=== PATIENT | male | born 1960 | race Caucasian/White ===

== ENCOUNTER → 2018-09-03 11:13 | Outpatient (CLI) | payer MEDICAID ==
[~2018-09-03 11:13] MED LIST: ALBUTEROL SULF8.5 GM INH; EDARBI40 MG PO; FLUTICASONE PRO16 GM NASAL; PLAVIX75 MG PO; SINGULAIR10 MG PO
[2018-09-16 11:13] VITALS: BMI 37.9
== END | disposition home or self-care (01) ==
LOC: D.NM 11:13
DX: I20.9 Angina pectoris, unspecified (principal)

== ENCOUNTER → 2018-09-16 10:38 | Outpatient (CLI) | payer MEDICAID ==
[~2018-09-16] VITALS: Ht 175.3 cm; Wt 116.4 kg
--- NOTE | ~2018-09-16 | HEMODYNAMI ---
PATIENT:TAMEKA RUCKER MEDICAL RECORD: [id number] : 62 LOCATION:[facility] ADMISSION DATE: 09/16/18 Generatedon:09/16/201815:25 Patient name: TAMEKA RUCKER Patient #: [id number] SSN: : 1960 Date of study: 09/16/2018 Page: Of Hemodynamic Procedure Report Patient Data Patient Demographics Procedure consent was obtained First Name: TAMEKA Gender: Male Last Name: ALKA : 1960 Patient #: [id number] Age: 58 year(s) Race: Unknown Additional ID: [id number] Contact details Address: [address] [place] [address] State: [place] City: [place] Zip code: [address] Past Medical History Allergies Allergen Reaction Date Comments Reported Other allergy 09/16/2018 PCN, Iodine Admission Admission Data Admission Date: 09/16/2018 Admission Time: 10:38 Height (in.): 70 BSA: 2.32 (m2) Height (cm.): 177.8 BMI: 36.73 (kg/m2) Weight (lbs.): 256 Weight (kg.): 116.12 Procedure Procedure Types Cath Procedure Diagnostic Procedure LH LH w/Coronaries PCI Procedure Coronary Stent Coronary Stent Initial Procedure Description Procedure Date Procedure Date: 09/16/2018 Procedure Start Time: 15:02 Procedure End Time: 15:22 Procedure Staff Name Function Chance Delgado MD Performing Physician Rocío Arambula RT Monitor Pierre Ma RN Nurse Eliana Grove RT Scrub Procedure Data Cath Procedure Fluoroscopy Diagnostic fluoroscopy Total fluoroscopy Time: 3.1 time: 3.1 min min Diagnostic fluoroscopy Total fluoroscopy dose: 942 dose: 942 mGy mGy Contrast Material Contrast Material Type Amount (ml) Isovue 300 120 Entry Location Entry Primary Successful Side Size Upsize Upsize Entry Closure Succes sful Closure Location (Fr) 1 (Fr) 2 (Fr) Remarks Device Remarks Femoral Right 5 Fr 6 Fr Exoseal artery Short Estimated blood loss: 10 ml Diagnostic catheters Device Type Used For End Catheter Placement MULTIPACK JL 4.0 5Fr Procedure catheter MULTIPACK 3DRC 5Fr Procedure catheter MULTIPACK Pigtail 5 Fr Procedure catheter Procedure Complications No complications Procedure Medications Medication Administration Route Dosage 0.9% NaCl I.V. 100 ml/hr Oxygen etCO2 Nasal cannula 2 l/min Heparin Flush Bag added to field 2 bags (1000units/500ml NS) Lidocaine 2% added to field 20 Versed I.V. 2 mg Fentanyl 100 mcg Heparin Bolus I.V. 5000 units Integrilin (Bolus I.V. 10.7 ml 2mg/ml) Integrilin (Bolus wasted 9.3 ml 2mg/ml) Nitroglycerin IC/IA I.C. 200 mcg Plavix P.O. 600 mg Hemodynamics Rest BSA: 2.32 (m2) O2 Consumption: Estimated: 274.59 (ml/min) O2 Consumption indexed : Estimated:118.36 (ml/min/m) Heart Rate: 71 (bpm) Pressure Samples Time Site Value (mmHg) Purpose Heart Use Rate(bpm) 15:09 LV 95/9,11 Snapshot 87 15:10 AO 171/171(82) Pullback 86 15:10 LV 86/9,11 Pullback 86 Gradients Valve Time Site 1 Site 2 Mean SEP/DFP Peak To Heart Use (mmHg) (sec/min) Peak Rate (mmHg) (bpm) Aortic 15:10 LV AO 0 16 0 86 86/9,11 171/171(82) Calculations Valve P-P Mean Valve Index Valve Source Name Gradient Area Flow (cm2) Aortic 0 0 0 0 Snapshots Pre Cath Intra NCS Post Cath Vital Signs Time Heart Resp SPO2 etCO2 NIBP Rhythm Pain Sedation Rate (ipm) (%) (mmHg) (mmHg) Status Level (bpm) 15:01:01 81 16 96 29.5 106/70(86) NSR 0 (11) 10(A) , No pain 15:05:09 82 13 95 11.3 112/61(84) NSR 0 (11) 10(A) , No pain 15:09:15 85 15 96 22.7 124/72(90) NSR 0 (11) 10(A) , No pain 15:13:27 85 13 96 8.3 112/68(81) NSR 0 (11) 9(A) , No pain 15:17:36 88 16 94 1.5 111/65(86) NSR 0 (11) 9(A) , No pain 15:21:50 92 18 96 18.9 102/53(61) NSR 0 (11) 10(A) , No pain Medications Time Medication Route Dose Verified Delivered Reason Notes Effectiveness by by 15:00:15 0.9% NaCl I.V. 100 Pierre Pierre Per physician ml/hr Francesca Ma RN RN 15:00:24 Oxygen etCO2 2 Pierre Pierre Per physician Nasal l/min Francesca Ma cannula RN RN 15:00:33 Heparin Flush added 2 Pierre Pierre used for Bag to bags Francesca Ma procedure (1000units/500ml field RN RN NS) 15:00:43 Lidocaine 2% added 20ml Pierre Pierre for local to vial Francesca Ma anesthetic field RN RN 15:02:27 Versed I.V. 2 mg Pierre Pierre for sedation Francesca Ma RN RN 15:02:33 Fentanyl 100 Pierre Pierre for sedation mcg Francesca Ma RN RN 15:12:58 Heparin Bolus I.V. 5000 Pierre Pierre for units Francesca Ma anticoagulation RN RN 15:13:21 Integrilin I.V. 10.7 Pierre Pierre for (Bolus 2mg/ml) ml Francesca aM antiplatelet RN RN therapy 15:13:44 Integrilin wasted 9.3 Pierre Pierre to sharp's (Bolus 2mg/ml) ml Francesca Ma RN RN 15:19:09 Nitroglycerin I.C. 200 Pierre Fltecher for IC/IA mcg Francesca Delgado vasodilation ANDRADE HEBERT 15:19:31 Plavix P.O. 600 Pierre Fletcher for mg Francesca Delgado antiplatelet ANDRADE HEBERT therapy Procedure Log Time Note 14:45:21 Patient Height : 70 inches 14:45:24 Patient Weight : 256 lbs 14:45:52 Diagnostic Cath status Elective 14:45:54 Pierre Ma RN sent for patient. Start room use. 14:45:56 Time tracking: Regular hours (M-F 7:00 - 5:00) 14:46:02 Plan of Care:Hemodynamics will remain stable., Cardiac rhythm will remain stable., Comfort level will be maintained., Respiratory function will remain adequate., Patient/ family verbilizes understanding of procedure., Procedure tolerated without complication., Recovers from procedure without complications.. 14:46:14 Patient received from Pre/Post Procedure Room to CCL 2 Alert and oriented. Tansferred to table in Supine position. 14:49:09 Warm blankets applied, and ann hugger turned on for patient comfort. 14:49:09 Correct patient and procedure confirmed by team. 14:49:11 Signed procedure consent form obtained from patient. 14:49:12 ECG and BP/O2 sat monitors applied to patient. 14:49:38 H&P Date Dictated: 08/27/2018 Within 30 days and on chart., H&P Addendum completed by physician on day of procedure. (MUST COMPLETE FOR ALL OUTPATIENTS). 14:49:39 Pre-procedure instructions explained to patient. 14:49:41 Family in waiting room. 14:49:44 Patient NPO since Midnight. 14:50:09 Patient allergic to Other allergyPCN, Iodine 14:50:11 Is the patient allergic to Iodine/contrast media? Yes. 14:50:13 Was the patient premedicated? Yes 14:50:15 Is patient on blood thinner?No 14:59:28 Patient diabetic? No. 14:59:32 Snore? Yes 14:59:33 Sleep apnea? Yes 14:59:52 Airway obstruction? Yes Emphyzema 14:59:59 Dentures? Yes in tight 15:00:02 Vital chart was started 15:00:04 Baseline sample Acquired. 15:00:08 Rhythm: sinus rhythm 15:00:09 Full Disclosure recording started 15:00:15 0.9% NaCl 100 ml/hr I.V. was administered by Pierre Ma RN; Per physician; 15:00:20 IV patent on arrival in left forearm with 0.9% NaCl at [facility]. 15:00:24 Oxygen 2 l/min etCO2 Nasal cannula was administered by Pierre Ma RN; Per physician; 15:00:33 Heparin Flush Bag (1000units/500ml NS) 2 bags added to field was administered by Pierre Ma RN; used for procedure; 15:00:43 Lidocaine 2% 20ml vial added to field was administered by Pierre Ma RN; for local anesthetic; 15:01:55 Right groin area was prepped with chlora-prep and draped in sterile fashion 15:01:56 Alarms reviewed by R. N. 15:01:56 Sharps counted by scrub and verified by R.N. 15:01:57 Physician arrived 15:01:58 --------ALL STOP TIME OUT------ 15:01:58 Final Timeout: patient, procedure, and site verified with staff and physician. All members of the team are in agreement. 15:02:03 Right groin site verified by team. 15:02:06 Physical assessment completed. ASA score P 2 - A patient with mild systemic disease as per Chance Delgado MD. 15:02:10 Sedation plan: IV Moderate Sedation Medication:Versed, Fentanyl 15:02:14 Use device set Femoral Dx 15:02:15 ACIST Syringe (77759) opened to sterile field. 15:02:15 Bag Decanter (2002S) opened to sterile field. 15:02:16 Medline Cath Pack ([id number]) opened to sterile field. 15:02:16 DIAGNOSTIC WIRE .035 260cm J wire (569911) opened to sterile field. 15:02:18 ACIST Hand Control (94046) opened to sterile field. 15:02:18 ACIST Manifold (69881) opened to sterile field. 15:02:18 DIAGNOSTIC Multipack 5Fr catheter set (EX2079) opened to sterile field. 15:02:19 Tegaderm 4 x 4 (1626W) opened to sterile field. 15:02:20 PERCUTANEOUS ENTRY 19GA needle opened to sterile field. 15:02:21 SHEATH Prelude 5Fr 0.035 (FLP-5I-76-035) opened to sterile field. 15:02:25 Procedure started. 15:02:27 Versed 2 mg I.V. was administered by Pierre Ma RN; for sedation; 15:02:33 Fentanyl 100 mcg was administered by Pierre Ma RN; for sedation; 15:05:27 A 5 Fr sheath was inserted into the Right Femoral artery 15:05:29 A MULTIPACK JL 4.0 5Fr catheter was advanced over the wire and used for Procedure. 15:05:32 J wire advanced. 15:06:25 LCA angiography performed. 15:07:20 Catheter removed. 15:07:57 A MULTIPACK 3DRC 5Fr catheter was advanced over the wire and used for Procedure. 15:08:06 RCA angiography performed. 15:08:35 Catheter removed. 15:08:50 A MULTIPACK Pigtail 5 Fr catheter was advanced over the wire and used for Procedure. 15:08:53 LV angiography performed. 15:08:57 Zero performed for pressure channel P1 15:10:36 WHISPER 300cm guide wire ([id number]) opened to sterile field. 15:10:37 INFLATOR Merit BasixCompak (ZL0744) opened to sterile field. 15:10:38 SHEATH Prelude 6Fr 0.035 (MWD-9W-66-035) opened to sterile field. 15:11:15 Proceeding to intervention. 15:11:54 GUIDE 6FR HS I catheter (LA6HSI) opened to sterile field. 15:12:18 Sheath upsized to a 6 Fr Short. 15:12:29 6 Fr HS1 guide catheter was inserted over the wire 15:12:58 Heparin Bolus 5000 units I.V. was administered by Pierre Ma RN; for anticoagulation; 15:13:21 Integrilin (Bolus 2mg/ml) 10.7 ml I.V. was administered by Pierre Ma RN; for antiplatelet therapy; 15:13:44 Integrilin (Bolus 2mg/ml) 9.3 ml wasted was administered by Pierre Ma RN; to sharp's; 15:15:01 Wire advanced across lesion. 15:17:20 Place stent Inflation Number: 1 A ULTRA Rx 4.5 x 18 stent ([id number]) was prepped and advanced across the Mid RCA. The stent was deployed at 12 MARY for 0:25 (min:sec). 15:18:40 Stent catheter was removed intact over wire. 15:19:09 Nitroglycerin IC/IA 200 mcg I.C. was administered by Chance Delgado MD; for vasodilation; 15:19:31 Plavix 600 mg P.O. was administered by Chance Delgado MD; for antiplatelet therapy; 15:19:40 EXOSEAL 6Fr (EX600) opened to sterile field. 15:20:08 Wire removed. 15:20:09 Guide catheter removed. 15:20:19 Sheath removed intact; hemostasis achieved with Exoseal to the Right Femoral artery. 15:20:23 Procedure ended.(Physican Out) 15:20:32 Fluoroscopy time 03.10 minutes. 15:20:39 Fluoroscopy dose: 942 mGy 15:20:39 Flurop Dose total: 942 15:20:45 Contrast amount:Isovue 300 120ml. 15:20:47 Sharps counted by scrub and verified by R.N. 15:20:52 Insertion/operative site no bleeding no hematoma. 15:21:19 Post Procedure Pulses reassessed and unchanged 15:21:23 Post-procedure physical assessment completed. ASA score P 2 - A patient with mild systemic disease as per Chance Delgado MD. 15:21:26 Post procedure rhythm: unchanged. 15:21:29 Estimated blood loss: 10 ml 15:21:30 Post procedure instruction explained to patient.Patient verbalizes understanding. 15:21:44 Procedure type changed to Cath procedure, Diagnostic procedure, LHC, LHC w/Coronaries, PCI procedure, Coronary Stent, Coronary Stent Initial 15:21:45 Procedure and supply charges have been captured, reviewed, submitted and are correct. 15:22:11 Procedure Complication : No complications 15:22:14 See physician's report for complete and final results. 15:22:16 Report given to Pre/Post Procedure Room. 15:22:19 Patient transfered to Pre/Post Procedure Room with Stretcher. 15:22:21 Procedure ended. 15:22:21 Full Disclosure recording stopped 15:22:25 End room use (Document Last) 15:25:49 Vital chart was stopped Intervention Summary Intervention Notes Time ActionType Lesion and Equipment Action# Pressure Duration Attributes Used 15:17:20 Place stent Mid RCA ULTRA Rx 1 12 00:25 4.5 x 18 stent ([id number]) Device Usage Item Name Manufacture Quantity Catalog Number Hospital Part Current Minimal Lot# / Charge Number Stock Stock Serial# Code ACIST Syringe Acist 1 93566 428309 195924 670714 20 (42928) Medical Systems Inc Bag Decanter Microtek 1 2001S 825647 68655 970732 5 () Medical Inc. Medline Cath Medline 1 [id number] 825984 50428 578242 5 Pack ([id number]) DIAGNOSTIC WIRE St [place] 1 906481 337994 260783 639889 30 .035 260cm J wire (747222) ACIST Hand Acist 1 37260 394783 096098 873055 5 Control (49021) Medical Systems Inc ACIST Manifold Acist 1 76135 431474 031631 754392 5 (19744) Medical Systems Inc DIAGNOSTIC Cardinal 1 HU4852 647076 80432 896854 30 Multipack 5Fr Health catheter set (HW7011) Tegaderm 4 x 4 3M 1 1626W 785384 639083 382674 5 (1626W) PERCUTANEOUS Cook Medical 1 D17141 025614 383274 5 ENTRY 19GA needle SHEATH Prelude Merit 1 RLA-7M-14-035 106691 891686 066282 5 5Fr 0.035 Medical (LLV-1O-16-035) MULTIPACK JL Cardinal 1 162867 5 4.0 5Fr Health catheter MULTIPACK 3DRC Cardinal 1 987335 5 5Fr catheter Health MULTIPACK Cardinal 1 980215 5 Pigtail 5 Fr Health catheter WHISPER 300cm Bernal 1 [id number] 680869 657721 866202 5 guide wire Vascular ([id number]) INFLATOR Merit Merit 1 [id number] 519326 273477 245295 15 BasixComark Medical (WO8343) SHEATH Prelude Merit 1 FKT-0I-19-35 906611 1294095 025750 5 6Fr 0.035 Medical (VCV-9X-28-035) GUIDE 6FR HS I Medtronic 1 LA6HSI 058755 76191 478919 1 catheter (LA6HSI) ULTRA Rx 4.5 x Bernal 1 [id number] 881085 104157 984783 5 [id number] 18 stent Vascular ([id number]) EXOSEAL 6Fr Cardinal 1 EX600 823696 825157 147406 10 (EX600) Health Signature Audit [place] Stage Time Signature Unsigned Intra-Procedure 09/16/2018 Rocío Arambula 3:25:41 PM RT(R) Signatures Monitor : Rocío Arambula Signature : RT Date : Time : [facility] [address] [place] [address]
--- NOTE | ~2018-09-16 | OP ---
PATIENT NAME: TAMEKA RUCKER MEDICAL RECORD: [id number] :62 LOCATION:D.CAT ADMISSION DATE: SURGEON: GLYNN MALIK MD DATE OF OPERATION: 09/16/2018 PROCEDURE: Left heart catheterization, selective coronary angiography, right femoral artery approach. CATHETERS: A 5-Vietnamese sheath, 5/4 left and right Claritza, 5/4 pig. The procedure was well tolerated. The patient was returned to shen. Sheath was removed. ExoSeal device was placed. FINDINGS: Left ventriculography in 30-degree GALVAN view: Normal wall motion and normal systolic function. CORONARY ANATOMY: LEFT MAIN: Left main is free of disease. LAD: Free of disease in the diagonal system. CIRCUMFLEX: Free of disease in the marginal system. RIGHT CORONARY ARTERY: Large artery. It gives rise to PDA and has 80% stenosis in its proximal one-third. IMPRESSION: Single-vessel disease involving the right. PLAN: Intervention momentarily. DESCRIPTION OF PROCEDURE: A 5-Vietnamese sheath was exchanged for a 6-Vietnamese sheath. Hockey-stick guide catheter provided excellent guide catheter support followed by 300-cm Whisper wire was placed across the tightly occluded right coronary down this portion of the vessel. Stent deployed was 4.5 Ultra up to 12 atmospheres for 45 seconds. Final angiography showed excellent resolution of an 80% stenosis with no significant residual. LUAN flow was 3 throughout the procedure. Integrilin was used during the case. Sheath was closed with ExoSeal device. Plavix was loaded in the lab. TRANSINT:[id number] Voice Confirmation ID: [id number] DOCUMENT ID: [id number] GLYNN MALIK MD at 0802 CC: [id number] DICTATION DATE: 09/16/18 1526 MEMBER SERVICES REPRESENTATIVE: 09/16/18 1700 DEP CLI 09/16/18 [facility] [address] [place] [address]
[2018-09-16 11:13] VITALS: BP 119/64; Ht 175.3 cm; Wt 116.4 kg
[2018-09-16 11:27] LABS: BASOPHILS 0.1 % (0-2); EOSINOPHILS 0.4 % (0-7); HEMATOCRIT 45.4 % (42.0-54.0); HEMOGLOBIN 15.3 g/dL (13.5-17.5); IMMATURE GRANULOCYTES 0.7 % (0-5); LYMPHOCYTES 8.1 % (15-50); MCH 30.5 pg (26.0-34.0); MCHC 33.7 g/dL (31.0-37.0); MCV 90.4 fL (80.0-100.0); MEAN PLATELET VOLUME 10.7 fL (7.4-10.4); MONOCYTES 2.2 % (2-11); NEUTROPHILS 88.5 % (40-80); PLATELET COUNT 263 10x3/uL (130-400); RBC 5.02 10x6/uL (4.20-6.10); RDW 13.2 % (11.5-14.5); WBC 9.9 10x3/uL (4.8-10.8)
[2018-09-16 11:37] LABS: ANION GAP 12.2 mmol/L (8-16); CALCIUM 9.5 mg/dL (8.5-10.1); CARBON DIOXIDE 29.1 mmol/L (21.0-32.0); CREATININE - SERUM 1.4 mg/dL (0.6-1.3); POTASSIUM - SERUM 4.3 mmol/L (3.5-5.1)
== END | disposition home or self-care (01) ==
LOC: D.CATH 10:38
PROVIDERS: Internal Medicine Interventional Cardiology
DX: I25.10 Atherosclerotic heart disease of native coronary artery without angina pectoris (principal)

== ENCOUNTER → 2019-05-18 09:07 | Outpatient (CLI) | payer MEDICARE ==
[2018-09-16 11:13] VITALS: BMI 37.9
--- NOTE | 2019-05-19 11:20 | ST ---
PATIENT:TAMEKA RUCKER MEDICAL RECORD: [id number] SEX: M LOCATION:[facility] ORDER #: ADMISSION DATE: 05/18/19 AGE OF PATIENT: 58 REFERRING PHYSICIAN: INTERPRETING PHYSICIAN: ELIZABETH GILLIS MD DATE OF SERVICE: 05/18/2019 PROCEDURE: Nuclear stress test. INDICATION: Angina and coronary artery disease, shortness of breath, hypertension. He was exercised on standard Lexiscan protocol with 32 mCi of sestamibi injected at peak stress, 11 mCi used previously for rest images. FINDINGS: Gated SPECT reveals preserved ejection fraction at 62% with good wall motion and thickening and brightening throughout all segments. SPECT imaging Cardiolite was used as myocardial fusion agent. There is homogeneous uptake throughout all segments at rest and stress with no evidence of inducible ischemia or previous infarction. OVERALL IMPRESSION: 1. This is a normal nuclear stress test with no evidence of inducible ischemia or previous infarction. 2. Gated SPECT reveals a preserved ejection fraction at 62%. In this patient with ongoing symptomatology, the current scan does not suggest the presence of hemodynamically significant coronary artery disease. Evaluate noncardiac etiology of chest pain. TRANSINT:[id number] Voice Confirmation ID: [id number] DOCUMENT ID: [id number] ELIZABETH GILLIS MD at 1120 CC: SOFYA DICKENS MD [id number] DICTATION DATE: 05/18/19 1634 BUSINESS AND SERVICES INSTRUCTOR: 05/19/19 0134 DEP CLI 05/18/19 [facility] [address] [place] [address]
--- NOTE | 2019-05-21 09:47 | EC ---
PATIENT:TAMEKA RUCKER DATE OF SERVICE: 05/18/19 SEX: M MEDICAL RECORD: [id number] DATE OF : 62 [facility] AGE OF PATIENT: 58 ADMISSION DATE: 05/18/19 REFERRING PHYSICIAN: INTERPRETING PHYSICIAN: GLYNN MALIK MD ECHOCARDIOGRAM REPORT ECHO CHARGES 4 ECHO COMPLETE Date: 05/18/19 CLINICAL DIAGNOSIS: CAD/ASSESS LVEF/ANGINA/PALPS ECHOCARDIOGRAPHIC MEASUREMENTS (adult normal given) AC root (d.<3.7cm) 3.8 cm LV Septum d (<1.2 cm> 1.4 cm Valve Excursion 2.1 cm LV Septum (systole) 1.6 cm Left Atria (s.<4.0cm> 4.3 cm LVPW d(<1.2cm) 1.6 cm RV (d.<2.3cm) 4.3 cm LVPW (sytole) 1.7 cm LV diastole(<5.6CM) 5.3 cm MV E-F(>70mm/sec) cm LV systole 3.9 cm LVOT Diameter 1.9 cm MV exc.(>10mm) 1.5 cm Est.ejection fraction (50-75%) % DOPPLER: LVIT cm/sec A 80.0 cm/sec E 71.0 cm/sec LA cm/sec RVSP 26 mmHg LVOT 121 cm/sec AOP1/2T m/s Asc. Ao 1425 cm/sec RVOT 101 cm/sec RA cm/sec PA 148 cm/sec AV Gradient Peak 8.05 mmHg AV Mean 3.99 mmHg AV Area 3.1 cm MV Gradient Peak 3.51 mmHg MV Mean 1.52 mmHg MV Area cm COMMENTS: English Language Learner Tutor: 2 BRIDGET DUENAS Crane Crew Supervisor: 3 Dr. Mtz TAPE# PACS Pericardial Effusion N DATE OF SERVICE: Adequate 2D, color flow, spectral Doppler, and M-Mode. Mild LVH. LV internal dimension is normal. Wall motion is normal. EF is greater than or equal to 55%. Aortic valve is tricuspid. No evidence of stenosis by Doppler interrogation. Left atrium is mildly dilated at 4.3 cm. Mitral valve shows no prolapse. Trace MR. Right-sided chambers grossly normal. Trace TR. TRANSINT:[id number] Voice Confirmation ID: [id number] DOCUMENT ID: [id number] ECHOCARDIOGRAM REPORT [id number] TAMEKA RUCKER,GLYNN Pierre MD at 0947 CC: [id number] DICTATION DATE: 05/19/19 1354 GEOGRAPHY DEPARTMENT CHAIR: 05/19/19 1425 DEP CLI 05/18/19 [id number] [place] [address]
== END | disposition home or self-care (01) ==
LOC: D.HCCARDIO 09:07
PROVIDERS: ATTEND Internal Medicine Interventional Cardiology
DX: I25.119 Atherosclerotic heart disease of native coronary artery with unspecified angina pectoris (principal)

== ENCOUNTER → 2019-07-09 10:42 | Outpatient (CLI) | payer MEDICARE ==
[2018-09-16 11:13] VITALS: BMI 37.9
== END | disposition home or self-care (01) ==
LOC: D.RT 10:42
PROVIDERS: ATTEND Family Medicine
DX: J44.9 Chronic obstructive pulmonary disease, unspecified (principal)

== ENCOUNTER → 2019-08-16 10:51 | Outpatient (CLI) | payer MEDICARE ==
[2018-09-16 11:13] VITALS: BMI 37.9
== END | disposition home or self-care (01) ==
LOC: D.RAD 10:51
PROVIDERS: ATTEND Internal Medicine Pulmonary Disease
DX: S22.31XA Fracture of one rib, right side, initial encounter for closed fracture (principal)

== ENCOUNTER → 2020-03-02 10:48 | Outpatient (CLI) | payer MEDICARE ==
[2018-09-16 11:13] VITALS: BMI 37.9
--- NOTE | 2020-03-06 14:03 | EC ---
PATIENT:TAMEKA RUCKER DATE OF SERVICE: 03/02/20 SEX: M MEDICAL RECORD: [id number] DATE OF : 62 [facility] AGE OF PATIENT: 59 ADMISSION DATE: 03/02/20 REFERRING PHYSICIAN: INTERPRETING PHYSICIAN: GLYNN MALIK MD ECHOCARDIOGRAM REPORT ECHO CHARGES 4 ECHO COMPLETE Date: 03/02/20 CLINICAL DIAGNOSIS: H/O HTN/CAD ECHOCARDIOGRAPHIC MEASUREMENTS (adult normal given) AC root (d.<3.7cm) 3.4 cm LV Septum d (<1.2 cm> 1.1 cm Valve Excursion 1.6 cm LV Septum (systole) 1.4 cm Left Atria (s.<4.0cm> 4.6 cm LVPW d(<1.2cm) 1.3 cm RV (d.<2.3cm) 3.5 cm LVPW (sytole) 1.6 cm LV diastole(<5.6CM) 6.1 cm MV E-F(>70mm/sec) cm LV systole 4.0 cm LVOT Diameter 2.0 cm MV exc.(>10mm) cm Est.ejection fraction (50-75%) % DOPPLER: LVIT cm/sec A 61.0 cm/sec E 97.0 cm/sec LA cm/sec RVSP 33.0 mmHg LVOT 142 cm/sec AOP1/2T m/s Asc. Ao 149 cm/sec RVOT 58.0 cm/sec RA cm/sec PA 163 cm/sec AV Gradient Peak 8.9 mmHg AV Mean 3.9 mmHg AV Area 2.9 cm MV Gradient Peak 4.2 mmHg MV Mean 1.8 mmHg MV Area cm COMMENTS: OP - HC Leather Cartridge Belt Maker: 1 NANCY AFGANOE Hospital Administrative Assistant: 3 Dr. Mtz TAPE# PACS Pericardial Effusion N DATE OF SERVICE: Adequate 2D, color flow imaging, spectral Doppler, and M-Mode LVH is present. LV internal dimensions are normal. Wall motion is normal. EF is greater than or equal to 55%. Aortic valve is tricuspid. No evidence of stenosis by Doppler interrogation. Left atrium is normal at 4.6 cm. Mitral valve shows no prolapse. Mild MR. Right-sided chambers are grossly normal. Mild TR. ECHOCARDIOGRAM REPORT [id number] TAMEKA RUCKER TRANSINT:[id number] Voice Confirmation ID: [id number] DOCUMENT ID: [id number] GLYNN MALIK MD at 1403 CC: [id number] DICTATION DATE: 03/03/20 1023 MATERIALS PLANNING ANALYST: 03/03/20 1729 DEP CLI 03/02/20 [place] [id number] [place] [id number]
== END | disposition home or self-care (01) ==
LOC: D.HCCECHO 10:48
PROVIDERS: ATTEND Internal Medicine Interventional Cardiology
DX: I10 Essential (primary) hypertension (principal)

== ENCOUNTER → 2020-07-01 10:23 | Outpatient (CLI) | payer MEDICARE ==
[2018-09-16 11:13] VITALS: BMI 37.9
== END | disposition home or self-care (01) ==
LOC: D.LAB 10:23
PROVIDERS: ATTEND Internal Medicine Pulmonary Disease
DX: Z11.59 Encounter for screening for other viral diseases (principal)

== ENCOUNTER → 2020-07-03 09:39 | Outpatient (CLI) | payer MEDICARE ==
[2018-09-16 11:13] VITALS: BMI 37.9
== END | disposition home or self-care (01) ==
LOC: D.RT 09:39
PROVIDERS: ATTEND Internal Medicine Pulmonary Disease
DX: Z11.59 Encounter for screening for other viral diseases (principal); J44.9 Chronic obstructive pulmonary disease, unspecified

== ENCOUNTER → 2021-03-07 09:22 | Outpatient (CLI) | payer MEDICARE ==
[2018-09-16 11:13] VITALS: BMI 37.9
--- NOTE | 2021-03-08 14:56 | EC ---
PATIENT:TAMEKA RUCKER DATE OF SERVICE: 03/07/21 SEX: M MEDICAL RECORD: [id number] DATE OF : 62 [facility] AGE [facility]: 60 ADMISSION DATE: 03/07/21 REFERRING PHYSICIAN: INTERPRETING PHYSICIAN: GLYNN MAILK MD ECHOCARDIOGRAM REPORT ECHO CHARGES 4 ECHO COMPLETE Date: 03/07/21 CLINICAL DIAGNOSIS: CAD/COPD/ ASSESS EF ECHOCARDIOGRAPHIC MEASUREMENTS (adult normal given) AC root (d.<3.7cm) 5.0 cm LV Septum d (<1.2 cm> 1.3 cm Valve Excursion 2.3 cm LV Septum (systole) 1.7 cm Left Atria (s.<4.0cm> 3.6 cm LVPW d(<1.2cm) 1.6 cm RV (d.<2.3cm) 4.4 cm LVPW (sytole) 1.8 cm LV diastole(<5.6CM) 4.8 cm MV E-F(>70mm/sec) cm LV systole 2.8 cm LVOT Diameter 2.1 cm MV exc.(>10mm) 1.8 cm Est.ejection fraction (50-75%) % DOPPLER: LVIT cm/sec A 92.0 cm/sec E 70.0 cm/sec LA cm/sec RVSP 25 mmHg LVOT 122 cm/sec AOP1/2T m/s Asc. Ao 152 cm/sec RVOT 79 cm/sec RA cm/sec PA 135 cm/sec AV Gradient Peak 9.26 mmHg AV Mean 4.68 mmHg AV Area 2.7 cm MV Gradient Peak 4.18 mmHg MV Mean 1.75 mmHg MV Area cm COMMENTS: Flight Controls Engineer: 2 BRIDGET DUENAS Cushion Maker: 3 Dr. Mtz TAPE# PACS Pericardial Effusion N DATE OF SERVICE: Adequate 2D, color flow imaging, spectral Doppler, and M-Mode. FINDINGS: LVH is present. LV internal dimension is normal. Wall motion is normal. EF is greater than or equal to 55%. Aortic valve is tricuspid. No evidence of stenosis by Doppler interrogation. Left atrium is normal at 3.36 cm. Mitral valve shows no prolapse. Trace MR. Right side is grossly normal. Trace TR. ECHOCARDIOGRAM REPORT [id number] TAMEKA RUCKER TRANSINT:[id number] Voice Confirmation ID: [id number] DOCUMENT ID: [id number] GLYNN MALIK MD at 1456 CC: [id number] DICTATION DATE: 03/08/21 1255 PSYCHIATRIC REGISTERED NURSE: 03/08/21 1436 DEP CLI 03/07/21 [place] [id number] [place] [address]
== END | disposition home or self-care (01) ==
LOC: D.HCCECHO 09:22
PROVIDERS: ATTEND Internal Medicine Interventional Cardiology
DX: I25.10 Atherosclerotic heart disease of native coronary artery without angina pectoris (principal)

== ENCOUNTER → 2021-05-22 09:05 | Outpatient (CLI) | payer MEDICARE ==
[2018-09-16 11:13] VITALS: BMI 37.9
== END | disposition home or self-care (01) ==
LOC: D.LAB 09:05
PROVIDERS: ATTEND Internal Medicine Pulmonary Disease
DX: Z11.52 Encounter for screening for COVID-19 (principal)

== ENCOUNTER → 2021-05-25 15:14 | Outpatient (CLI) | payer MEDICARE ==
[2018-09-16 11:13] VITALS: BMI 37.9
== END | disposition home or self-care (01) ==
LOC: D.RT 08:30
PROVIDERS: ATTEND Internal Medicine Pulmonary Disease
DX: J44.9 Chronic obstructive pulmonary disease, unspecified (principal)